=== PATIENT | male | born 1985 | race Caucasian/White ===

== ENCOUNTER 2020-09-18 10:45 | Emergency (ER) | payer OTHER, SELFPAY ==
[2020-09-18] MEDS ORDERED: Dexamethasone 4 MG TAB ONE (11:53)
--- NOTE | 2020-09-18 13:50 | RAD ---
PORTABLE CHEST: DATE: 09/18/2020. FINDINGS: An AP portable film at 1137 shows no major lobar consolidation or effusion. Some of the lung marking s in the right base, however, are slightly prominent and I would wonder about a developing infectious process here. There might be some similar areas in the left lower lobe, but less so. IMPRESSION: Minor findings, but somewhat suspicious for early development of infection in particularly the right lower lobe. In the proper clinical context, the findings could potentially be related to COVID. POS: HOME
== END 2020-09-18 12:05 | disposition home or self-care (01) ==
LOC: BURERS 10:45
DX: U07.1 COVID-19 (principal); K21.9 Gastro-esophageal reflux disease without esophagitis
CPT/HCPCS: 71045; J8540

== ENCOUNTER 2020-12-29 10:12 | Emergency (ER) | payer OTHER, SELFPAY ==
[2020-12-29] MEDS ORDERED: Lidocaine 1% PF 5 ML VIAL ONE (10:19)
[2020-12-29] MEDS ORDERED: Boostrix 0.5 ML (Tdap) VIAL ONE (10:25)
== END 2020-12-29 11:16 | disposition home or self-care (01) ==
LOC: BURERS 10:12
DX: S61.411A Laceration without foreign body of right hand, initial encounter (principal); K21.9 Gastro-esophageal reflux disease without esophagitis; W26.8XXA Contact with other sharp object(s), not elsewhere classified, initial encounter; Z23 Encounter for immunization; Y92.009 Unspecified place in unspecified non-institutional (private) residence as the place of occurrence of the external cause
CPT/HCPCS: 12002; 90471; 90715

== ENCOUNTER 2021-05-08 15:02 | Outpatient (CLI) | payer OTHER | END 2021-05-08 15:03 | disposition home or self-care (01) | LOC: BURRAD 15:02 | PROVIDERS: ATTEND Nurse Practitioner | DX: S93.505A Unspecified sprain of left lesser toe(s), initial encounter (principal) ==